=== PATIENT | male | born 1980 | race Caucasian/White ===

== ENCOUNTER 2023-07-27 12:50 | Emergency (ER) | payer OTHER, SELFPAY ==
[2023-07-27 12:55] VITALS: BP 102/65
[2023-07-27 14:42] VITALS: BMI 20.2
[2023-07-27 14:45] VITALS: BP 104/65
--- NOTE | 2023-07-27 14:47 | ED.GENMED ---
Addendum entered and electronically signed by Patrice Scales PA-C 07/30/23 08:37:
Low growth staph epidermidis, likely contaminant
Original Note:
History of Present Illness
General
Chief Complaint: Blood Pressure Problem
Time Seen by Provider: 07/27/23 14:42
Travel History
Have you had any contact with someone who has COVID-19?: No
Do you have any symptoms of coronavirus? Fever > 100 degrees, chills, cough, shortness of breath, sore throat, loss of taste or smell, muscle aches, or headache?: No
History of Present Illness
History of Present Illness:
HPI: The patient presents due to concerns with fever and had low blood pressure readings at his [facility] office. He had a Tmax of 104 over the last few days. He says he is usually normotensive however at the office today had a systolic blood pressure
of 86. He was referred here for further evaluation. He has no dysuria, he has minimal if any cough
EXAM:
GENERAL: Well appearing in no distress, blood pressure slightly low initially at 102/65
HEENT: Moist oral mucosa, no meningeal signs
CARDIOVASCULAR: No murmurs, normal heart rate, regular rhythm, No chest wall tenderness
PULMONARY: No respiratory distress, breath sounds are clear and equal
ABDOMEN: Soft with no peritoneal signs, no tenderness
NEUROLOGIC: Excellent strength all extremities, no coordination deficits
PSYCHIATRIC: Appropriate mental status, normal insight and judgement
EXTREMITIES: Nontender, chronic lymphedema to the right lower extremity, moves all extremities equally
SKIN: No rash, no lesions
TIME OF INITIAL ENCOUNTER: 2:45 PM
NUMBER AND COMPLEXITY OF PROBLEMS ADDRESSED AT THE ENCOUNTER
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
� Acute Exacerbation and/or Progression of Chronic Illness: This is an acute problem
� Differential Diagnosis includes: Sepsis, bacteremia, viral syndrome, doubt pneumonia as he has no symptoms of these conditions, doubt meningitis based on physical examination, no significant UTI symptoms
AMOUNT AND/OR COMPLEXITY OF DATA TO BE REVIEWED AND ANALYZED
� I performed an independent evaluation of and my interpretation is:
EKG: Sinus 80, normal axis, nonspecific ST abnormality
CT:
X-rays:
Laboratory Studies: Lactic is 1.5, slightly low sodium at 128 but otherwise relatively unremarkable chemistries; total bili is elevated however this is chronic urinalysis shows 1+ leukocyte esterase; COVID-negative; flu
negative, white blood cell count is normal at 5.6, hemoglobin is 13.8, platelet count 72 which is
Other:
� Review of other/old records: I reviewed records, I see no prior recent admissions however has been seen in the ED related to flu, UTI, and cellulitis in 2021/2022
� Clinical information was obtained by an independent historian: I spoke to mother at bedside
� Prescriptions/Medications Considered but not given:
� Further testing considered but not performed: Considered chest x-ray however the patient has no respiratory symptoms and has no significant cough and has clear lungs.
RISK OF COMPLICATIONS AND/OR MORBIDITY OR MORTALITY OF PATIENT MANAGEMENT
� Social determinants of health affecting care: Lives at home
� Discussion with other providers:
� Escalation of care including admission/observation vs risk of discharge considered: The patient's blood pressure is slightly low. He was given IV fluids. Lactic acid is normal. Chronic hyperbilirubinemia is noted. After 800
mL of fluid given, the patient's repeat blood pressure is now 116 systolic. He is well-appearing. We talked about his history of hypersplenism. The patient's urinalysis does show some increased number of white cells (11-15), there is also
moderate amount of bacteria as well as 1+ leukocyte esterase. He does have a history of kidney stones but reports no abdominal or flank pain. Will start antibiotics for urinary tract infection. We gave Rocephin and will start Cipro as outpatient
as he did have a fever earlier at home.
Past History
Past History
ED Past Medical History: Cancer (Skin cancer), Other (Splenomegaly, chronic thrombocytopenia, chronically elevated bilirubin) and Other (Kidney stones)
ED Past Surgical History: Urological (Ureteroscopy for stone removal) and Other (Skin cancer removal right flank)
Social History
Tobacco: Non-smoker
Alcohol: None
Drug: None
Personal:
Living: with family
Employment: Employed
Family History
Family History: Other (Noncontributory)
Phy Exam
Physical Exam
Physical Exam:
See HPI
Course
Orders/Labs/Results
Orders:
Orders
07/27/23 12:56
EKG [Electrocardiogram (*1)] Urgent
Reason for Study: Fatigue / Weakness
07/27/23 12:57
EKG- Treatment ONCE
07/27/23 14:46
0.9% Sodium Chloride 1000 ml [Nss] 1,000 ml IV BOLUS
07/27/23 14:49
Complete Blood Count/With Diff Urgent
Comprehensive Metabolic Panel Urgent
Lactic Acid Q4H
Comment: CANCEL 2nd LACTIC ACID IF 1st LACTIC ACID IS LESS THAN 2
Blood Culture Q30M
CHARLI Source: Blood/Venous
Specimen Description:
07/27/23 14:59
COVID-19 Antigen Urgent
Source: Nasal Swab
Urinalysis Reflex To Culture Urgent
Date Specimen was Collected: 07/27/23
Time Specimen was Collected: 14:56
Urine Microscopic Reflex Cult Urgent
Influenza A+B Rapid Molecular Urgent
CHARLI Source: Nasal Swab
Specimen Description:
Urine Culture Urgent
CHARLI Source: U
Specimen Description:
Date Specimen was Collected: 07/27/23
Time Specimen was Collected: 14:56
07/27/23 15:29
0.9% Sodium Chloride 1000 ml [Nss] 1,000 ml IV BOLUS
07/27/23 15:30
Blood Culture Q30M
CHARLI Source: Blood/Venous
Specimen Description:
07/27/23 15:31
Add On- LAB Urgent
Tests Added?: bmp
07/27/23 15:56
CefTRIAXone [Rocephin] 1,000 mg IV NOW STA
Abnormal Lab Results
07/27/23 07/27/23
14:49 14:59
RBC 3.84 L 10^6/uL
(4.70-6.10)
Hct 37.2 L %
(39.0-52.0)
MCV 96.9 H fL
(80.0-94.0)
MCH 35.9 H pg
(27.0-31.0)
MCHC 37.1 H g/dL
(33.0-37.0)
Plt Count 72 L 10^3/uL
(130-400)
Absolute Lymphs (auto) 0.2 L 10^3/uL
(1.2-3.4)
Neutrophils % 93.3 H %
(42.2-75.2)
Lymphocytes % 2.7 L %
(20.5-51.1)
Sodium 128 L mmol/L
(135-145)
Glucose 104 H mg/dl
(70-99)
Calcium 8.1 L mg/dl
(8.4-10.2)
Total Bilirubin 4.1 H mg/dl
(0.2-1.3)
Ur Occult Blood Reflex Trace A
(Negative)
Leukocyte Esterase Rfl 1+ A
(Negative)
Urine WBC (Reflex) 11-15 A /HPF
(0-5)
Urine Bacteria (Reflex) Moderate A
(Negative)
07/27/23 14:49
07/27/23 14:49
Vital Signs
Blood pressure: 116/79
Initial and Last Documented VS:
Initial Vital Signs
Temp Pulse Resp BP Pulse Ox
99.0 F 87 18 102/65 100
07/27/23 12:55 07/27/23 12:55 07/27/23 12:55 07/27/23 12:55 07/27/23 12:55
Last Documented Vital Signs
Temp Pulse Resp BP Pulse Ox
99.0 F 89 16 116/79 100
07/27/23 12:55 07/27/23 14:45 07/27/23 14:45 07/27/23 15:57 07/27/23 14:45
*Critical Care Note
Total Time (30-74mins, 75-104mins- exclusive of procedures): Not Applicable
ED Attending Note
-
Portions of this chart may have been created with voice recognition software.� Occasional wrong word or��sound alike� substitutions may have occurred due to the inherent limitations of voice recognition software.
Discharge Plan
Departure
Patient Disposition: Home (Routine Discharge)
Date of Disposition: 07/27/23
Time of Disposition: 16:05
Patient with high blood pressure during this ER visit?: Yes
Discharge Problem:
UTI (urinary tract infection)
Instructions: Urinary Tract Infection, Adult ED
Prescriptions:
New
ciprofloxacin HCl [Cipro] 500 mg tablet
500 mg PO BID Qty: 14 0RF
No Action
doxycycline monohydrate 100 mg capsule
100 mg PO BID Qty: 14 1RF
doxycycline hyclate 100 mg tablet
100 mg PO BID Qty: 20 0RF
Referrals:
Jocelyn Singh MD [Family Provider] -
Activity Restrictions/Additional Instructions:
Your white blood cell count and lactic acid levels are both normal. Your total bilirubin is elevated but this is chronic. The urinalysis does show an increased number of white cells therefore I recommend treating with antibiotics since you did
have a fever earlier. We gave a dose of Rocephin and I sent a prescription to your pharmacy.
Interventions
Interventions:
*Risk Screen - Suicide Last Done: 07/27/23 12:55
*General Assessment Last Done: 07/27/23 12:55
*Neglect/Abuse Screening Last Done: 07/27/23 12:55
*ED COVID-19 Vaccine History Last Done: 07/27/23 12:55
ED- Neurological Assessment Last Done: 07/27/23 14:43
ED- Pulmonary Assessment Last Done: 07/27/23 14:43
Discharge Date and Time
Print Language: KENYAN
[2023-07-27] MEDS: NSS 1000 IV ×2 (14:56→15:53)
[2023-07-27 15:00] VITALS: BP 102/60
[2023-07-27 15:23] LABS: Urine Albumin Negative (Neg - Trace); Urine Bilirubin Negative (Negative); Urine Character Clear (Clear); Urine Color Yellow; Urine Glucose Negative (Negative); Urine Ketone Negative (Negative); Urine Leukocyte 1+ (Negative); Urine Nitrite Negative (Negative); Urine Occult Blood Trace (Negative); Urine Urobilinogen Negative (Neg - 1+)
[2023-07-27 15:25] LABS: COVID-19 Antigen Negative (Negative)
[2023-07-27 15:26] LABS: ALT (SGPT) 23 U/L (0-50); AST (SGOT) 41 U/L (17-59); Albumin 3.6 g/dl (3.5-5.0); Alkaline Phosphatase 78 U/L (38-126); Blood Urea Nitrogen 10 mg/dl (9-20); Calcium 8.1 mg/dl (8.4-10.2); Carbon Dioxide 23 mmol/L (22-30); Chloride 101 mmol/L (98-107); Estimated Creatinine Clearance 117 ml/min; Glucose 104 mg/dl (70-99); Potassium 4.4 mmol/L (3.5-5.1); Sodium 128 mmol/L (135-145); Total Bilirubin 4.1 mg/dl (0.2-1.3); Total Protein 7.1 g/dl (6.3-8.2); eGFR > 60.00
[2023-07-27 15:27] LABS: Lactic Acid 1.5 mmol/L (0.7-2.0)
[2023-07-27 15:46] LABS: Urine Calcium Oxalate Crystals Present; Urine Red Blood Cell 0-2 /HPF (0-2)
[2023-07-27 15:47] LABS: Urine Bacteria Moderate (Negative)
[2023-07-27 15:48] LABS: Hematocrit 37.2 % (39.0-52.0); Hemoglobin 13.8 g/dL (13.0-18.0); Mean Corp Hgb Conc. 37.1 g/dL (33.0-37.0); Mean Corpuscular Hgb 35.9 pg (27.0-31.0); Mean Corpuscular Volume 96.9 fL (80.0-94.0); Red Blood Cell Count 3.84 10^6/uL (4.70-6.10); White Blood Cell Count 5.6 10^3/uL (4.8-10.8)
[2023-07-27 15:49] LABS: % Lymphocytes 2.7 % (20.5-51.1); % Neutrophils 93.3 % (42.2-75.2); Mean Platelet Volume 10.2 fL (7.4-10.4); Platelet Count 72 10^3/uL (130-400); Red Cell Dist. Width 12.6 % (11.5-14.5)
[2023-07-27 15:50] LABS: % Basophils 0.4 % (0-2); % Immature Granulocytes 0.5 % (0-0.5); % Monocytes 3.1 % (1.7-9.3); Absolute Lymphocytes 0.2 10^3/uL (1.2-3.4); Absolute Monocytes 0.2 10^3/uL (0.1-0.6); Absolute Neutrophils 5.2 10^3/uL (1.4-6.5)
[2023-07-27 15:51] LABS: Nucleated Red Blood Cells % 0 % (-)
[2023-07-27] MEDS: ROCEPHIN 1000 MG IV (16:20)
== END 2023-07-27 16:34 | disposition home or self-care (01) ==
LOC: EMR 12:50
PROVIDERS: EMERGENCY PHYSICIAN Emergency Medicine; FAMILY PHYSICIAN Emergency Medicine
DX: N39.0 Urinary tract infection, site not specified (principal); R03.0 Elevated blood-pressure reading, without diagnosis of hypertension; Z11.52 Encounter for screening for COVID-19; Z87.442 Personal history of urinary calculi
CPT/HCPCS: 99284; 96374; 96361 ×2; 80053; 81003; 81015; 83605; 85025; 87040; 87086; 87147; 87186; 87502; 87811; 93005

== ENCOUNTER → 2023-09-26 09:03 | Outpatient (REF) | payer OTHER, SELFPAY | LOC: HWRAD 09:03 | PROVIDERS: ATTENDING PHYSICIAN Urology; FAMILY PHYSICIAN Family Medicine | DX: N20.0 Calculus of kidney (principal) | CPT/HCPCS: 76775 ==

== ENCOUNTER 2023-10-09 13:04 | Emergency (ER) | payer OTHER, SELFPAY ==
[2023-10-09 13:17] VITALS: BP 135/70
[2023-10-09] MEDS: NSS 500 IV (15:02)
[2023-10-09 15:13] LABS: % Basophils 0.5 % (0-2); % Eosinophils 1.1 % (0-6); % Immature Granulocytes 0.3 % (0-0.5); % Lymphocytes 19.5 % (20.5-51.1); % Neutrophils 71.7 % (42.2-75.2); Absolute Eosinophils 0.1 10^3/uL (0-0.7); Absolute Lymphocytes 1.3 10^3/uL (1.2-3.4); Absolute Monocytes 0.5 10^3/uL (0.1-0.6); Absolute Neutrophils 4.8 10^3/uL (1.4-6.5); Hematocrit 35.8 % (39.0-52.0); Hemoglobin 13.3 g/dL (13.0-18.0); Mean Corp Hgb Conc. 36.7 g/dL (33.0-37.0); Mean Corpuscular Volume 95.3 fL (80.0-94.0); Mean Platelet Volume 10.6 fL (7.4-10.4); Nucleated Red Blood Cells % 0 % (-); Platelet Count 98 10^3/uL (130-400); Red Cell Dist. Width 14.1 % (11.5-14.5); White Blood Cell Count 6.6 10^3/uL (4.8-10.8)
[2023-10-09 15:26] LABS: Blood Urea Nitrogen 10 mg/dl (9-20); Calcium 8.3 mg/dl (8.4-10.2); Carbon Dioxide 26 mmol/L (22-30); Chloride 106 mmol/L (98-107); Glucose 120 mg/dl (70-99); Potassium 3.6 mmol/L (3.5-5.1); Sodium 136 mmol/L (135-145); eGFR > 60.00
[2023-10-09] MEDS: TORADOL 15 MG IV (15:36)
[2023-10-09] MEDS: ZOFRAN 4 MG IV (15:36)
[2023-10-09 15:47] LABS: Urine Albumin 2+ (Neg - Trace); Urine Bilirubin 2+ (Negative); Urine Character Slightly Cloudy (Clear); Urine Color Amber; Urine Glucose Negative (Negative); Urine Ketone Negative (Negative); Urine Leukocyte 2+ (Negative); Urine Nitrite Positive (Negative); Urine Occult Blood 4+ (Negative); Urine Urobilinogen 2+ (Neg - 1+)
--- NOTE | 2023-10-09 15:56 | ED.GENMED ---
History of Present Illness
General
Chief Complaint: Post Operative Problem(s)
Source: patient
Exam Limitations: none
Time Seen by Provider: 10/09/23 14:43
Nursing documentation reviewed up to this point in time: agreed with
History of Present Illness
History of Present Illness:
Patient status post lithotripsy and subsequent ureteral stent placement 2 days ago, presents to ED secondary to persistent right-sided abdominal pain, worse during urination with generalized weakness and fatigue. Patient also reports intermittent
episodes of vomiting. Denies fever or chills. Denies dizziness. Denies weakness. Denies new trauma.
Past History
Past History
ED Past Medical History: Cancer (Skin cancer), Other (Splenomegaly, chronic thrombocytopenia, chronically elevated bilirubin) and Other (Kidney stones)
ED Past Surgical History: Urological (Ureteroscopy for stone removal) and Other (Skin cancer removal right flank)
Social History
Tobacco: Non-smoker
Alcohol: None
Drug: None
Personal:
Living: with family
Employment: Employed
Family History
Family History: Other (Noncontributory)
Review of Systems
Review of Systems
Allergies reviewed?: Yes
All Other Systems: ROS reviewed and negative except as documented in HPI and ROS
Constitutional: Reports no symptoms; Denies fever or chills
EENT: Reports no symptoms
ABD/GI: Reports abdominal pain, nausea and vomiting; Denies diarrhea
: Reports flank pain
Musculoskeletal: Reports no symptoms
Skin: Reports no symptoms
Neurological: Reports no symptoms
Phy Exam
Physical Exam
Physical Exam:
Physical Exam
General: no apparent distress, not acutely ill. afebrile
Head: nc/at. eomi
Neck: supple. no meningeal signs.
Heart: s1/s2 regular rate and rhythm, no murmur. equal radial pulses.
Lungs: no acute respiratory distress. clear bilaterally
Abdomen: normal bowel sounds. not tender.
Neuro: alert and oriented. no focal neurological deficits
Skin: no rash
Psychiatric: well kept. interactive and cooperative
Extremities: no edema. no calf tenderness.
Course
Orders/Labs/Results
Orders:
Orders
10/09/23 14:48
Ketorolac [Toradol] 15 mg IV NOW STA
Ondansetron Injectable [Zofran] 4 mg IV NOW STA
10/09/23 14:49
0.9% Sodium Chloride 500 ml [Nss] 500 ml IV BOLUS
CR Abdomen - 1 View Urgent
Comment:
Reason For Exam: right sided pain, s/p ureteral stent placement
10/09/23 14:55
Basic Metabolic Panel Urgent
Complete Blood Count/With Diff Urgent
10/09/23 15:38
Urinalysis Reflex To Culture Urgent
Date Specimen was Collected: 10/09/23
Time Specimen was Collected: 15:19
Urine Microscopic Reflex Cult Urgent
Urine Culture Urgent
CHARLI Source: U
Specimen Description:
Date Specimen was Collected: 10/09/23
Time Specimen was Collected: 15:19
10/09/23 16:23
Cefdinir [Omnicef] 300 mg PO NOW STA
Abnormal Lab Results
10/09/23 10/09/23
14:55 15:38
RBC 3.80 L 10^6/uL
(4.70-6.10)
Hct 35.8 L %
(39.0-52.0)
MCV 95.3 H fL
(80.0-94.0)
MCH 35.0 H pg
(27.0-31.0)
Plt Count 98 L 10^3/uL
(130-400)
MPV 10.6 H fL
(7.4-10.4)
Lymphocytes % 19.5 L %
(20.5-51.1)
Glucose 120 H mg/dl
(70-99)
Calcium 8.3 L mg/dl
(8.4-10.2)
Ur Occult Blood Reflex 4+ A
(Negative)
Urine Nitrite (Reflex) Positive A
(Negative)
Urine Bilirubin 2+ A
(Negative)
Urine Urobilinogen 2+ A
(Neg - 1+)
Leukocyte Esterase Rfl 2+ A
(Negative)
Urine RBC 90-100 A /HPF
(0-2)
Urine Bacteria (Reflex) Many A
(Negative)
Urine Albumin (Reflex) 2+ A
(Neg - Trace)
10/09/23 14:55
10/09/23 14:55
Vital Signs
Initial and Last Documented VS:
Initial Vital Signs
Temp Pulse Resp BP Pulse Ox
98.8 F 70 18 135/70 99
10/09/23 13:17 10/09/23 13:17 10/09/23 13:17 10/09/23 13:17 10/09/23 13:17
Last Documented Vital Signs
Temp Pulse Resp BP Pulse Ox
98.8 F 70 18 135/70 99
10/09/23 13:17 10/09/23 13:17 10/09/23 13:17 10/09/23 13:17 10/09/23 13:17
MDM/Problems Addressed
MDM/Problems Addressed:
Patient remains afebrile and hemodynamically stable during observation in the ED, without any vomiting episodes.
X-ray report as well as blood work and urinalysis results discussed with on-call urologist, Dr. Villalba. As patient remains clinically stable, afebrile, and hemodynamically stable, decision made to discharge patient home with oral antibiotics,
Omnicef, along with outpatient follow-up. Patient will be advised to return to ED with worsening symptoms, i.e. fever/worsening pain/vomiting.
*Critical Care Note
Total Time (30-74mins, 75-104mins- exclusive of procedures): Not Applicable
ED Attending Note
-
Portions of this chart may have been created with voice recognition software.� Occasional wrong word or��sound alike� substitutions may have occurred due to the inherent limitations of voice recognition software.
Discharge Plan
Departure
Patient Disposition: Home (Routine Discharge)
Date of Disposition: 10/09/23
Time of Disposition: 16:25
Patient with high blood pressure during this ER visit?: Yes
Condition: Good
Discharge Problem:
Post-operative pain, Acute UTI
Instructions: Postoperative Pain (DC), Urinary Tract Infection, Adult ED
Prescriptions:
New
cefdinir 300 mg capsule
300 mg PO Q12H Qty: 13 0RF
ondansetron 4 mg Tablet,Disintegrating
4 mg PO TIDPRN PRN (Reason: nausea/vomiting) Qty: 12 0RF
No Action
doxycycline monohydrate 100 mg capsule
100 mg PO BID Qty: 14 1RF
doxycycline hyclate 100 mg tablet
100 mg PO BID Qty: 20 0RF
ciprofloxacin HCl [Cipro] 500 mg tablet
500 mg PO BID Qty: 14 0RF
Referrals:
Jong Silva DO [Family Provider] -
Neal Villalba MD [Active] -
Activity Restrictions/Additional Instructions:
As discussed, please follow-up with your urologist for further evaluation and treatment. Your prescriptions have been sent electronically to [facility] pharmacy in [place]. Please consider return to ED with worsening symptoms, i.e. fever/worsening
pain/vomiting.
Interventions
Interventions:
*Risk Screen - Suicide Last Done: 10/09/23 13:19
*General Assessment Last Done: 10/09/23 13:19
*Neglect/Abuse Screening Last Done: 10/09/23 13:19
*ED COVID-19 Vaccine History Last Done: 10/09/23 13:19
*Nursing Disposition Last Done: 10/09/23 16:56
ED-Skin Assessment Last Done: 10/09/23 16:55
Discharge Date and Time
Discharge Date/Time: 10/09/23 16:57
Print Language: [email or web address]
[2023-10-09 15:57] LABS: Urine Calcium Oxalate Crystals Present; Urine Red Blood Cell 90-100 /HPF (0-2)
[2023-10-09 15:58] LABS: Urine Bacteria Many (Negative)
[2023-10-09] MEDS: OMNICEF 300 MG PO (16:41)
== END 2023-10-09 16:57 | disposition home or self-care (01) ==
LOC: EMR 13:04
PROVIDERS: EMERGENCY PHYSICIAN Emergency Medicine; FAMILY PHYSICIAN Family Medicine
DX: G89.18 Other acute postprocedural pain (principal); N39.0 Urinary tract infection, site not specified; R16.1 Splenomegaly, not elsewhere classified; D69.6 Thrombocytopenia, unspecified; Z85.828 Personal history of other malignant neoplasm of skin; Z87.442 Personal history of urinary calculi
CPT/HCPCS: 99283; 96374; 96375; 96361; 74018; 80048; 81003; 81015; 85025; 87086

== ENCOUNTER → 2023-11-18 16:02 | Outpatient (REF) | payer OTHER, SELFPAY | LOC: RCS 16:02 | PROVIDERS: ATTENDING PHYSICIAN Nurse Practitioner Family; FAMILY PHYSICIAN Family Medicine | DX: R01.1 Cardiac murmur, unspecified (principal) | CPT/HCPCS: 93306 ==

== ENCOUNTER → 2024-02-10 15:32 | Outpatient (REF) | payer OTHER, SELFPAY | LOC: DHSLP 15:32 | PROVIDERS: ATTENDING PHYSICIAN Internal Medicine; FAMILY PHYSICIAN Nurse Practitioner Family | DX: G47.19 Other hypersomnia (principal); R06.83 Snoring | CPT/HCPCS: 95800 ==

== ENCOUNTER → 2024-12-19 10:29 | Outpatient (REF) | payer OTHER, SELFPAY | LOC: RAD 10:29 | PROVIDERS: ATTENDING PHYSICIAN Orthopaedic Surgery; FAMILY PHYSICIAN Family Medicine | DX: S52.501A Unspecified fracture of the lower end of right radius, initial encounter for closed fracture (principal) | CPT/HCPCS: 73110 ==

== ENCOUNTER → 2025-02-11 15:18 | Outpatient (REF) | payer OTHER, SELFPAY | LOC: HWRAD 15:18 | PROVIDERS: ATTENDING PHYSICIAN Urology; FAMILY PHYSICIAN Family Medicine | DX: N20.0 Calculus of kidney (principal) | CPT/HCPCS: 76775 ==